=== PATIENT | male | born 1975 | race Caucasian/White ===

== ENCOUNTER 2017-03-13 04:33 | Emergency (ER) | payer SELFPAY ==
[2017-03-13 04:35] VITALS: BP 129/81; PULSE 75; RESP 17; TEMP 97.5; O2SAT 98
--- NOTE | 2017-03-13 04:57 | PD ---
HPI Chief Complaint: Skin Problem Time Seen by Provider: 04:53 Travel History International Travel<30 days: No Contact w/Intl Traveler<30days: No Traveled to known affect area: No History of Present Illness HPI Patient comes in complaining of 2 painful bumps on his right upper extremity. Patient states that yesterday he had what he thought was a pimple on his right forearm which he popped. Patient states when he awoke noticeable swelling more painful over the area. Patient also noticed he had a second bump in his right axilla that he popped as well. Patient denies any fevers with this. Describes pain is throbbing burning pain without radiation. Patient tried soaking it with no improvement of symptoms. Pain is worse with palpation. Denies any fevers, numbness or tingling, nausea, or vomiting. PFSH Past Medical History Medical History: Denies Significant Hx Social History Alcohol Use: No Tobacco Use: Yes (1 pk a day) Substance Use: No Allergies-Medications (Allergen,Severity, Reaction): Coded Allergies: Penicillin (Verified Allergy, Severe, Hives, 03/13/17) all cillins Reported Meds & Prescriptions Reported Meds & Active Scripts Active Bactrim DS (Sulfamethoxazole-Trimethoprim) 800-160 Mg Tab 1 Tab PO BID Review of Systems Except as stated in HPI: all other systems reviewed are Neg Physical Exam Narrative GENERAL: Well-developed, well nourished, in no acute distress, and non-ill appearing. SKIN: Focused skin assessment warm and dry. Small nontender nonerythematous scheduling the right axilla. There is no crepitus. Patient has second lesion on his right forearm with some soft tissue swelling surrounding it. It is mildly tender to palpation. It is indurated without fluctuation. It is afebrile and without crepitus. HEAD: Atraumatic. Normocephalic. EYES: Pupils equal and round. EOMI. No scleral icterus. No injection or drainage. ENT: No nasal bleeding or discharge. Mucous membranes pink and moist. NECK: Trachea midline. Supple. No nuclear rigidity. RESPIRATORY: No accessory muscle use. No respiratory distress. MUSCULOSKELETAL: No obvious deformities. No clubbing. No cyanosis. No edema. Full range of motion. NEUROLOGICAL: Awake and alert. No obvious cranial nerve deficits. Motor grossly within normal limits. Normal speech. PSYCHIATRIC: Appropriate mood and affect; insight and judgment normal. Data Data Last Documented VS Vital Signs Date Time Temp Pulse Resp B/P Pulse Ox O2 Delivery O2 Flow Rate FiO2 03/13/17 04:35 97.5 75 17 129/81 98 Room Air MDM Medical Decision Making Medical Screen Exam Complete: Yes Emergency Medical Condition: Yes Differential Diagnosis Abscess, cellulitis, wound infection, folliculitis, other Narrative Course The patient has no evidence of obvious abscess at this time. The patient will be discharged on antibiotics for cellulitis with possible early/immature abscess. Clinical suspicion, diagnosis and care management was discussed. The patient was given signs and symptoms warnings for worsening infection, such as spreading of redness, increasing pain, and/or swelling, associated heat, pus or fever and instructed to return immediately if these signs or symptoms worsen. The patient is to return in 2 days for recheck for maturity. Sooner if worsens or as needed. The patient agrees with plan. Patient in no obvious distress upon re-evaluation. Patient was asked if they wanted to speak to my attending, which the patient did not wish to do at this time. Any questions/concerns in reference to patient diagnosis/condition discussed and clarified prior to patient's discharge. Reinforced sheer importance of close follow up with patient's primary physician or primary care clinic. Instructed patient to return to ED immediately, if symptoms return/ worsen. Pt showed understanding of above instructions. Further instructions and recommendations were detailed in discharge paperwork. Pt ambulated without difficulty out of ED at discharge. Diagnosis Primary Impression: Cellulitis Qualified Code: L03.113 - Cellulitis of right upper extremity Patient Instructions: Cellulitis (ED), General Instructions Additional Instructions: Follow-up with your primary care physician or return here in 2 days for recheck. Take all medication as prescribed. Return to the emergency department if symptoms get worse. Med/Other Pt SpecificInfo: Prescription(s) given Scripts Sulfamethoxazole-Trimethoprim (Bactrim DS)800-160 Mg Tab1 Tab PO BID #20 TAB Ref 0 Prov:Poncho De Jesus MD 03/13/17 Disposition: 01 DISCHARGE HOME Condition: Stable Karthikeyan Patel Mar 13, 2017 04:57
[2017-03-13] MEDS ORDERED: BACT800T5 PO (04:58)
== END 2017-03-13 05:08 | disposition home or self-care (01) ==
LOC: NEPD 04:33
DX: L03.113 Cellulitis of right upper limb (principal); F17.200 Nicotine dependence, unspecified, uncomplicated; Z88.0 Allergy status to penicillin; Z79.899 Other long term (current) drug therapy
CPT/HCPCS: 99283

== ENCOUNTER 2017-03-15 19:58 | Emergency (ER) | payer SELFPAY ==
[~2017-03-15] VITALS: Ht 188 cm; Wt 84.0 kg
[~2017-03-15 19:58] MED LIST: BACT800T5 PO
[2017-03-15 20:03] VITALS: BP 140/84; PULSE 107; RESP 15; TEMP 99.5; O2SAT 99
--- NOTE | 2017-03-15 20:21 | PD ---
Physical Exam Time Seen by Provider: 20:20 Narrative 41 y/o male here for recheck of R arm cellulitis. Seen on 03/13, started on bactrim. Vital signs reviewed. Seen at triage desk. Awaiting bed placement. Data Data Last Documented VS Vital Signs Date Time Temp Pulse Resp B/P Pulse Ox O2 Delivery O2 Flow Rate FiO2 03/15/17 20:03 99.5 107 15 140/84 99 Room Air [facility] Medical Record Reviewed: Yes Supervised Visit with KIM: Willian Christopher Mar 15, 2017 20:21
--- NOTE | 2017-03-15 21:21 | PD ---
HPI Chief Complaint: Skin Problem Time Seen by Provider: 21:17 Travel History International Travel<30 days: No Contact w/Intl Traveler<30days: No Traveled to known affect area: No History of Present Illness HPI Patient comes in for recheck of right arm cellulitis that he was seen here for 2 days ago. Patient reports taking antibiotics as prescribed as well as rubbing rock salt and rubbing alcohol over the wound. Patient reports with his right axilla has resolved however still has concerns over his right forearm. Patient reports the edema has improved however feels as though erythematous slightly worse. Patient denies any fevers, nausea, vomiting, IV drug use, chest pain or shortness of breath, nausea, or vomiting. Pain when palpating it without radiation. PFSH Past Medical History Medical History: Denies Significant Hx Social History Alcohol Use: No Tobacco Use: Yes (1 pk a day) Substance Use: No Allergies-Medications (Allergen,Severity, Reaction): Coded Allergies: [place] (Verified Allergy, Severe, Dehydration, 03/15/17) Penicillin (Verified Allergy, Severe, Hives, 03/15/17) all cillins Reported Meds & Prescriptions Reported Meds & Active Scripts Active Keflex (Cephalexin) 500 Mg Cap 500 Mg PO Q8H Bactrim DS (Sulfamethoxazole-Trimethoprim) 800-160 Mg Tab 1 Tab PO BID Review of Systems Except as stated in HPI: all other systems reviewed are Neg Physical Exam Narrative GENERAL: Well-developed, well nourished, in no acute distress, and non-ill appearing. SKIN: Right axillary lesion has resolved. There is been much improvement noted to the cellulitis of the right forearm. The edema has improved greatly. Erythematous is about the same, but appears slightly improved. There is no fluctuation, induration, or crepitus. There is no drainage. Patient reports tenderness to palpation. HEAD: Atraumatic. Normocephalic. EYES: Pupils equal and round. EOMI. No scleral icterus. No injection or drainage. ENT: No nasal bleeding or discharge. Mucous membranes pink and moist. NECK: Trachea midline. Supple. No nuclear rigidity. CARDIOVASCULAR: Radial pulses 2+, tach, equal bilaterally. Capillary refill less than 2 seconds. RESPIRATORY: No accessory muscle use. No respiratory distress. MUSCULOSKELETAL: No obvious deformities. No clubbing. No cyanosis. No edema. Full range of motion. NEUROLOGICAL: Awake and alert. No obvious cranial nerve deficits. Motor grossly within normal limits. Normal speech. PSYCHIATRIC: Appropriate mood and affect; insight and judgment normal. Data Data Last Documented VS Vital Signs Date Time Temp Pulse Resp B/P Pulse Ox O2 Delivery O2 Flow Rate FiO2 03/15/17 21:49 98.4 75 16 108/77 99 03/15/17 20:03 Room Air Orders Clindamycin Inj (Cleocin Inj) (03/15/17 21:30) [facility] Medical Decision Making Medical Screen Exam Complete: Yes Emergency Medical Condition: Yes Differential Diagnosis Abscess, cellulitis, failed outpatient therapy, other Narrative Course The patient has cellulitis. There is no evidence of necrotizing fasciitis at this time. There is no evidence of abscess. There is no evidence of local joint space involvement. There is no evidence of deep venous thrombosis. The patient will be discharged on antibiotics. The patient was given signs and symptoms warnings for worsening infection, such as spreading of redness, increasing pain , and/or swelling, associated heat, or fever and instructed to return immediately if these signs or symptoms worsen. The patient is to follow up with physician in 2 days for recheck or return here in 2 days for recheck if unable to establish outpatient follow up. Sooner if worsens or as needed. The patient agrees with plan. Patient in no obvious distress upon re-evaluation. Patient was asked if they wanted to speak to my attending, which the patient did not wish to do at this time. Any questions/concerns in reference to patient diagnosis/condition discussed and clarified prior to patient's discharge. Reinforced sheer importance of close follow up with patient's primary physician or primary care clinic or return here in 2 days for recheck. Instructed patient to return to ED immediately, if symptoms return/worsen. Pt showed understanding of above instructions. Further instructions and recommendations were detailed in discharge paperwork. Pt ambulated without difficulty out of ED at discharge. Diagnosis Primary Impression: Cellulitis Qualified Code: L03.113 - Cellulitis of right upper extremity Patient Instructions: Cellulitis (ED), General Instructions Additional Instructions: Follow-up with your primary care physician in 2 days or return here in 2 days for recheck. Take all medication as prescribed today along with previous prescribed antibiotic. Return to the emergency department if symptoms get worse. Med/Other Pt SpecificInfo: Prescription(s) given Scripts Cephalexin (Keflex)500 Mg Cic104 Mg PO Q8H #30 CAP Ref 0 Prov:Nava Chaney DO 03/15/17 Disposition: 01 DISCHARGE HOME Condition: Stable Karthikeyan Patel Mar 15, 2017 21:21
[2017-03-15] MEDS ORDERED: CEPH-460 PO (21:22)
[2017-03-15] MEDS ORDERED: CLINDAMYCIN PHOS 600 MG/4 ML VIAL IM ONE (21:30)
[2017-03-15 21:49] VITALS: BP 108/77; TEMP 98.4
== END 2017-03-15 21:50 | disposition home or self-care (01) ==
LOC: NEPK 19:58
DX: L03.113 Cellulitis of right upper limb (principal)
CPT/HCPCS: 96372

== ENCOUNTER 2017-03-20 21:09 | Emergency (ER) | payer SELFPAY ==
[~2017-03-20] VITALS: Ht 188 cm; Wt 85.0 kg
[~2017-03-20 21:09] MED LIST changes: +CEPH-460 PO
[2017-03-20 21:11] VITALS: BP 127/83; PULSE 92; RESP 16; TEMP 98.5; O2SAT 98
--- NOTE | 2017-03-20 23:35 | PD ---
HPI Chief Complaint: Skin Problem Time Seen by Provider: 23:20 Travel History International Travel<30 days: No Contact w/Intl Traveler<30days: No Traveled to known affect area: No PFSH Past Medical History Medical History: Denies Significant Hx Diminished Hearing: No Past Surgical History Other Surgery: Yes (RHINOPLASTY) Social History Alcohol Use: No Tobacco Use: Yes (1PPD) Substance Use: Yes (MARIJUANA) Allergies-Medications (Allergen,Severity, Reaction): Coded Allergies: [place] (Verified Allergy, Severe, Dehydration, 03/20/17) Penicillin (Verified Allergy, Severe, Hives, 03/20/17) all cillins Reported Meds & Prescriptions Reported Meds & Active Scripts Active Keflex (Cephalexin) 500 Mg Cap 500 Mg PO Q8H Bactrim DS (Sulfamethoxazole-Trimethoprim) 800-160 Mg Tab 1 Tab PO BID Data Data Last Documented VS Vital Signs Date Time Temp Pulse Resp B/P Pulse Ox O2 Delivery O2 Flow Rate FiO2 03/20/17 21:11 98.5 92 16 127/83 98 Room Air Orders Wound Culture And Gram Stain (03/20/17 23:24) Garrett Albert MD Mar 20, 2017 23:35
--- NOTE | 2017-03-20 23:40 | PD ---
HPI Chief Complaint: Skin Problem Time Seen by Provider: 23:34 Travel History International Travel<30 days: No Contact w/Intl Traveler<30days: No Traveled to known affect area: No History of Present Illness HPI Patient comes in for recheck of cellulitis of his right forearm that he was seen here for previously. He states he is taking all antibiotics as prescribed. Patient states 2 days ago area of concern came to a head and started draining. Patient states he thinks he got all the pus out but is concerned as he feels there is a second one be forming near the first that is becoming painful. Pain is burning like in nature without radiation. Pain is worse to palpation. Patient denies a fevers, nausea, vomiting, numbness or tingling anywhere. Patient states he's been trying keep the area dry and clean as possible with soap and water. He states he covers it was at work. Patient reports he stopped using the rock salt to clean it, but is using warm compresses. PFSH Past Medical History Medical History: Denies Significant Hx Diminished Hearing: No Past Surgical History Other Surgery: Yes (RHINOPLASTY) Social History Alcohol Use: No Tobacco Use: Yes (1PPD) Substance Use: Yes (MARIJUANA) Allergies-Medications (Allergen,Severity, Reaction): Coded Allergies: [place] (Verified Allergy, Severe, Dehydration, 03/20/17) Penicillin (Verified Allergy, Severe, Hives, 03/20/17) all cillins Reported Meds & Prescriptions Reported Meds & Active Scripts Active Keflex (Cephalexin) 500 Mg Cap 500 Mg PO Q8H Bactrim DS (Sulfamethoxazole-Trimethoprim) 800-160 Mg Tab 1 Tab PO BID Review of Systems Except as stated in HPI: all other systems reviewed are Neg Physical Exam Narrative GENERAL: Well-developed, well nourished, in no acute distress, and non-ill appearing. SKIN: Focused skin assessment warm and dry. Patient is a small hole from a recently drained abscess right forearm. There is minimal induration without fluctuation. Minimal erythematous, afebrile, and mildly tender. HEAD: Atraumatic. Normocephalic. EYES: Pupils equal and round. EOMI. No scleral icterus. No injection or drainage. ENT: No nasal bleeding or discharge. Mucous membranes pink and moist. NECK: Trachea midline. Supple. No nuclear rigidity. RESPIRATORY: No accessory muscle use. No respiratory distress. MUSCULOSKELETAL: No obvious deformities. No clubbing. No cyanosis. No edema. Full range of motion. NEUROLOGICAL: Awake and alert. No obvious cranial nerve deficits. Motor grossly within normal limits. Normal speech. PSYCHIATRIC: Appropriate mood and affect; insight and judgment normal. Data Data Last Documented VS Vital Signs Date Time Temp Pulse Resp B/P Pulse Ox O2 Delivery O2 Flow Rate FiO2 03/20/17 21:11 98.5 92 16 127/83 98 Room Air Orders Wound Culture And Gram Stain (03/20/17 23:24) [facility] Medical Decision Making Medical Screen Exam Complete: Yes Emergency Medical Condition: Yes Differential Diagnosis Abscess, cellulitis, folliculitis, other Narrative Course The patient has no evidence of significant cellulitis. There is no evidence of necrotizing fasciitis/ [place] at this time. The patient will be discharged and instructed to finish previously prescribed antibiotics. The patient was given signs and symptoms warnings for worsening infection, such as spreading of redness, increasing pain, and/or swelling, associated heat, or fever or feels worse, and instructed to return immediately if these signs or symptoms worsen. The patient is to return in 2 days for recheck. Sooner if worsens or as needed. The patient agrees with plan. Patient in no obvious distress upon re-evaluation. Wound culture was obtained. Discussed patient with Dr. Albert, who saw and evaluated patient and is in agreement with plan care and disposition. Any questions/concerns in reference to patient diagnosis/condition discussed and clarified prior to patient's discharge. Reinforced sheer importance of close follow up with patient's primary physician or primary care clinic. Instructed patient to return to ED immediately, if symptoms return/worsen. Pt showed understanding of above instructions. Further instructions and recommendations were detailed in discharge paperwork. Pt ambulated without difficulty out of ED at discharge. Diagnosis Primary Impression: Abscess Referrals: [facility] Patient Instructions: Abscess (ED), Abscess Follow-up (ED), General Instructions Additional Instructions: Follow-up with your primary care physician or return here in 2 days for recheck. Take all medication as previously prescribed. Keep wound dry and clean as possible using soap and water. Do not soak or submerge wound. Continue doing warm compresses. Return to the emergency department if symptoms get worse. Disposition: DISCHARGE HOME Condition: Stable Karthikeyan Patel Mar 20, 2017:40
--- NOTE | 2017-03-21 01:41 | PD ---
Data Data Last Documented VS Vital Signs Date Time Temp Pulse Resp B/P Pulse Ox O2 Delivery O2 Flow Rate FiO2 03/20/17 21:11 98.5 92 16 127/83 98 Room Air Orders Wound Culture And Gram Stain (03/20/17 23:24) MDM Supervised Visit with KIM: Yes Narrative Course I, Dr. Albert, have reviewed the advance practice practitioner's documentation and am in agreement, met with the patient face to face, made the diagnosis, and the medical decision making was done by me. *My assessment and Findings: Patient seen and examined by me in addition to Delonte Patel PA-C, patient has a abscess which has started to drain spontaneously to the right dorsal forearm. There is no surrounding cellulitis and minimal surrounding induration. The patient is are he on Bactrim and Flex and has a few days left to finish. At this point I do not see any indication to add additional antibiotics. Discussed with the patient symptomatic control soap and water home and returned ED criteria. Diagnosis Primary Impression: Abscess Referrals: [facility] Patient Instructions: General Instructions, Abscess (ED), Abscess Follow-up (ED ) Departure Forms: Tests/Procedures Additional Instruction: Follow-up with your primary care physician or return here in 2 days for recheck. Take all medication as previously prescribed. Keep wound dry and clean as possible using soap and water. Do not soak or submerge wound. Continue doing warm compresses. Return to the emergency department if symptoms get worse. Disposition: 01 DISCHARGE HOME Condition: Stable Garrett Albert MD Mar 21, 2017 01:41
== END 2017-03-21 00:41 | disposition home or self-care (01) ==
LOC: NEPD 21:09
DX: L02.413 Cutaneous abscess of right upper limb (principal); A49.02 Methicillin resistant Staphylococcus aureus infection, unspecified site; F17.200 Nicotine dependence, unspecified, uncomplicated; Z79.899 Other long term (current) drug therapy; Z88.0 Allergy status to penicillin
CPT/HCPCS: 86403; 87070; 87186; 99283